=== PATIENT | female | born 1965 | race Caucasian/White ===

== ENCOUNTER 2025-11-07 10:31 | Outpatient (AMB) | payer BC, SELFPAY ==
--- NOTE | 2025-11-07 10:35 | A.PHYSOV_ITS ---
Vital Signs 11/07/25 10:36 Height 5 ft 7 in Weight 195 lb BMI 30.5 Intake Visit Reasons: 3M FUV Intake Note: Patient is a 60 year old female in for her 3 month medication management visit. Engine Mechanic Required: No Allergies No Known Allergies Allergy (Verified 11/07/25 10:35) HPI Comments Details: History of Present Illness The patient is a 60 year old female presenting for a follow-up visit for chronic neck and lower back pain. She has a history of cervical radiculitis and fibromyalgia, for which she is treated with Suboxone daily. Lumbar sacral spine x-rays from March 07, 2025, demonstrated diffuse degenerative changes with multilevel neuroforaminal narrowing, left lateral recess stenosis at the L3-L4 level, and severe left foraminal stenosis at the L5-S1 level. She subsequently underwent left L3 and L5 transforaminal injections on May 01, 2025, which provided at least an 80% reduction in painful symptomatology. At present, her left leg pain is significantly improved, described as very faint and livable. However, she continues to have difficulty standing for long periods, and her lower back cracks and pops. She reports that the Suboxone continues to be helpful. Pain Description - Location: Chronic neck and lower back pain. - Quality: The lower back is described as having cracking and popping sensations. - Radiation: She had prior left leg pain, which is now feeling better and described as very faint. - Exacerbating factors: Standing for a long period. - Relieving factors: Prior left L3 and L5 transforaminal injections provided an 80% reduction in painful symptoms. Results - Imaging: - Lumbar sacral spine MRI (03/07/2025): Revealed diffuse degenerative changes, multilevel neuroforaminal narrowing, left lateral recess stenosis at L3-L4, and severe left foraminal stenosis at L5-S1. [facility] Medical History (Updated 11/07/25 @ 12:03 by Rafat Brunner DO) Spinal stenosis, lumbar region with neurogenic claudication Lumbar radiculitis Chronic pain syndrome Fibromyalgia Surgical History History of cholecystectomy Social History Alcohol intake: current Alcohol intake frequency: does not drink Patient Tobacco Use Status: Former Tobacco user Substance Use Type: Marijuana Current occupational status: retired Review of Systems Narrative Review of Systems - General: Reports generalized body aches and fatigue, particularly in winter. - Musculoskeletal: Reports chronic neck pain and lower back pain with cracking and popping sensations. - Neurological: Reports history of left leg radicular pain, which is now significantly improved and described as very faint. - Respiratory: Reports a history of sleep apnea. Physical Exam Exam Exam: Physical Exam Patient appears to be in no acute distress. Appropriately conversant oriented. She ambulates without antalgia. She was able to perform heel walk and toe walk with support for balance. Cervical range of motion was normal. Lumbar range of motion was restricted in extension. Spurling maneuver was negative today. Lhermitte's sign was negative. She demonstrated no upper motor neuron signs. Neurological examination of upper and lower extremities was nonfocal. Vital Signs: BMI result Body Mass Index 30.5 Assessment & Plan Assessment & Plan (1) Fibromyalgia: Code(s): M79.7 - Fibromyalgia Category: Medical (2) Chronic pain syndrome: Code(s): G89.4 - Chronic pain syndrome Category: Medical (3) Lumbar radiculitis: Code(s): M54.16 - Radiculopathy, lumbar region Category: Medical (4) Spinal stenosis, lumbar region with neurogenic claudication: Code(s): M48.062 - Spinal stenosis, lumbar region with neurogenic claudication Category: Medical Plan Pain Management - Analgesia: The patient takes Suboxone daily for fibromyalgia which she reports is helping. - She received at least an 80% reduction in painful symptoms after left L3 and L5 transforaminal injections. - Her current pain is described as livable, with the prior left leg pain being very faint. - Activities of Daily Living: She has difficulty standing for long periods due to lower back pain. - Affect: She reports body aches and wanting to sleep all the time in the winter. - Adverse Effects: No adverse effects from medications were reported. - Aberrant Drug Related Behaviors: No aberrant behaviors were noted. Plan Patient was informed and verbally consented to the use of an ambient scribe for clinic note documentation during this visit. 1. Chronic Lower Back Pain With Radiculopathy The patient reports significant improvement in her left-sided radicular symptoms following left L3 and L5 transforaminal epidural steroid injections on 05/01/2025, with at least 80% relief. She continues to experience some mechanical low back pain with prolonged standing. Will continue current management and and will see her back in three months for follow up. 2. Fibromyalgia The patient continues to take Suboxone daily with good effect. A refill for Suboxone will be sent for the 11/21/2025 for a 28-day supply. Discussion Notes I reviewed the patient's progress since her last visit. We discussed that her left leg pain has significantly improved to being very faint after her transforaminal injections in April, which provided her with about 80% relief. We also discussed her ongoing use of Suboxone for fibromyalgia, which she finds effective. I will provide a refill for her Suboxone for a 28-day supply to be filled on the November 21. I advised a follow-up visit in three months to continue monitoring her chronic pain. Patient Instructions - Continue taking your Suboxone every day as it appears to be helping your fibromyalgia pain. - A new 28-day prescription for your Suboxone will be sent to your pharmacy. Please pick it up on the . - Please schedule a follow-up appointment to be seen in the office in three months. Medications: Changed From buprenorphine-naloxone 4-1 mg 1 film sublingual DAILY 30 days 28 ea 0RF pain M79.7 - Fibromyalgia To buprenorphine-naloxone 4-1 mg 1 film sublingual DAILY 28 ea 0RF pain 28 days M79.7 - Fibromyalgia Refilled buprenorphine-naloxone 4-1 mg 1 film sublingual DAILY 30 days 28 ea 0RF pain M79.7 - Fibromyalgia Coding Level of Care Code Est Pt Level 3 (75623) Add On Problem Visit Only Diagnoses Fibromyalgia M79.7 Chronic pain syndrome G89.4 Lumbar radiculitis M54.16 Spinal stenosis, lumbar region with neurogenic claudication M48.062
[2025-11-07 10:36] VITALS: BMI 30.5
--- OUTSIDE RECORDS SUMMARY | 2025-11-07 13:07 | XMS_ITS | Clinical Summary ---
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 MEDICATION MAY CAUSE DROWSINESS, DO NOT DRIVE/OPERATE MACHINERY WHILE TAKING 4 Active magnesium oxide (MagOx) 400 mg (241.3 elemental magnesium) tablet Take 1 tablet (400 mg total) by mouth 1 (one) time each day. 4 Active riboflavin (VITAMIN B2) 400 mg tablet Take 1 tablet (400 mg total) by mouth 1 (one) time each day. 4 Active solifenacin (VESICARE) 5 mg tablet Take 1 tablet (5 mg total) by mouth 1 (one) time each day. 4 Active docusate sodium (COLACE) 100 mg capsule Take 1 capsule (100 mg total) by mouth 2 (two) times a day. Active SACCHAROMYCES BOULARDII ORAL Saccharomyces boulardii (Probiotic) 250 MG Cap Active B complex tablet Take by mouth 1 (one) time each day. Active SUMAtriptan (IMITREX) 100 mg tablet Take by mouth. May repeat dose once after 2 hours, if needed. 1 Active sucralfate (CARAFATE) 1 gram tablet Take 1 Tablet by mouth 4 times daily as needed. Prn 8 Active diazePAM (VALIUM) 10 mg tablet Take 10 mg by mouth at bedtime. Prn Active pantoprazole (PROTONIX) 40 mg EC tablet Take 1 tablet (40 mg total) by mouth 1 (one) time each day. 8 Active cetirizine (ZyrTEC) 10 mg tablet Take 1 tablet (10 mg total) by mouth 1 (one) time each day. 9 Active cholecalcifero l, vitamin D3, 100 mcg (4,000 unit) tablet Take by mouth. Ac tive DULoxetine (CYMBALTA) [address] capsuleIndicat ions:Fibromyal rey TAKE 1 CAPSULE BY MOUTH EVERY DAY 90 capsule 1 5 Active lactobacillus acidoph-l.bulg ar 100 million cell granules in packet Take 1 packet by mouth. Active solifenacin (VESICARE) 5 mg tablet Take 1 tablet (5 mg total) by mouth 1 (one) time each day. Swallow tablet whole; do not crush, chew, or split. 90 tablet 3 5 Active buPROPion XL (WELLBUTRIN XL) 150 mg 24 hr tablet TAKE 1 TABLET BY MOUTH IN THE MORNING 90 tablet 1 5 Active lisinopriL (PRINIVIL,ZEST RIL) 10 mg tablet TAKE 1 TABLET BY MOUTH DAILY 90 tablet 1 5 Active Active Problems Problem Noted Date Diagnosed Date Vasomotor symptoms due to menopause 11/12/2023 Overview (11/13/2024): Last Assessment & Plan: Counseled the patient re: options for treatment of vasomotor sx. Explained there are herbal supplements which have not been shown to be effective over placebo and are not FDA monitored for dose and side effect, but can be helpful for some women. Also discussed option for Paxil, Effexor and Clonidine and reviewed their expected SE. I discussed hormone therapy and reviewed the findings of the [facility]. I discussed risks including cardiovascular disease- GA, DVT, stroke. I discussed small increased risk of breast cancer in women with uterus who use progestin for endometrial protection. I explained risk of DVT can be decreased by taking estradiol transdermally. I explained that risk of heart disease in I was highest in women who were 10 years or more out from menopause. She was counseled that I would generally recommend trying a non-hormonal method without cardiovascular risks first. I recommended we check with her PCP to see if we could add something like Paxil to her Cymbalta. I messaged Dr. Clemente and will call patient once I hear back. She voiced understanding of my counseling and agreed. She will call me if she has not heard back in two weeks. Mixed hyperlipidemia 08/02/2023 Gastroesophageal reflux disease without esophagi tis 02/26/2023 Fibromyalgia 08/28/2022 Closed displaced fracture of fifth metatarsal bone of left foot 04/24/2021 Epicondylitis elbow, medial, left 04/24/2021 Lateral epicondylitis of left elbow 04/24/2021 Snoring 10/30/2018 Overview (11/13/2024): 10/2018 Polysomnogram did not reveal sleep apnea. 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 Dave Immunizations Immunization Administration Dates Next Due Influenza Quadravalent, MDCK , 0.5ml, preservative free (Flucelvax) 6mo and older 08/02/2023,08/28/2022,11/05/2020 Influenza Quadravalent, MDCK , 0.5ml, with preservative (Flucelvax) 6mo and older 08/11/2018,07/30/2017 Influenza trivalent, 0.5mL, preservative free (Fluarix; FluLaval; Fluzone) ages 6mo and older (Afluria) 3 years and older 08/09/2024,10/30/2014,08/21/2013,12/22 Pfizer SARS-CoV-2 COVID-19, mRNA, LNP-S, preservative free 04/01/2021,03/02/2021 Pneumococcal polysaccharide 23 valent (Pneumovax 23) 2yo and older 01/11/2014 Tdap Tetanus diptheria acell ular pertussis (Boostrix; Adacel) 7yo and older 08/28/2022,10/16/2009 Surgical History Surgery Date Site/Laterality Comments CHOLECYSTECTOMY PROCEDURE: HISTORICAL CHOLECYSTECTOMY OTHER SURGICAL HISTORY 03/05/2022 PROCEDURE: OUTSIDE ENDOSCOPY; COMMENT: nml bx pending [place] BREAST REDUCTION 11/22/1996 - 11/21/1997 Bilateral breast reduction surgery BLADDER SURGERY 11/22/2023 - 11/21/2024 BLADDER SLING Medical History Medical History Date Comments Unspecified asthma(493.90) 04/28/2006 DX:Un specified asthma(493.90) Headache(784.0) DX:Headache(784. 0) Pansinusitis DX:Pansinusitis; COMMENT: dr bee ent Tubular adenoma 2016 DX:Tubular adeno ma History of endoscopy 09/02/2017 DX:History of endoscopy Migraine DX:Migraine; COM MENT: dr gibbons Anxiety and depression DX:Anxiet y and depression; COMMENT: rmg Abnormal mammogram 02/2018 DX:Abnormal m ammogram; COMMENT: Needs additional imaging Family History Medical History Relation Name Comments Autoimmune disease Neg Hx Breast cancer Neg Hx Colon cancer Neg Hx Coronary artery disease Neg Hx Diabetes Neg Hx Heart attack Neg Hx Heart failure Neg Hx Hyperlipidemia Neg Hx Hypertension Neg Hx Mental illness Neg Hx Ovarian cancer Neg Hx Prostate cancer Neg Hx Sleep apnea Neg Hx Thyroid disease Neg Hx Uterine cancer Neg Hx Relation Name Status Comments Brother Alive Father (Age 71) complicati ons from agent orange Mother Alive hyperparathyroi d Sister Alive Social History Tobacco Use Types Packs/Day Years Used Date Smoking Tobacco: Former Cigarettes 0 Q uit: 1999 Smokeless Tobacco: Never Tobacco Cessation:Counseling Given: Not Answered Alcohol Use Standard Drinks/Week Comments No 0 (1 standard drink = 0.6 oz pur e alcohol) Housing Instability Answer Date Recorde d Are you worried that in the next 2 months you may not have stable housing? No 05/15/2025 Food Access & Nutrition Answer Date Rec orded Do you have access to a vari ety of food including fruits and vegetables? Yes 05/15/2025 Health Literacy Answer Date Recorded How often do you need to hav e someone help you when you read instructions, pamphlets, or other written material from your doctor or pharmacy? Never 05/15/2025 Caregiver: How often do you need to have someone help you when you read instructions, pamphlets, or other written material from your doctor or pharmacy? Not on file 05/15/2025 Financial Risk Answer Date Recorded How hard is it for you to pa y for the very basics like food, housing, medical care, and air conditioning / heating? Not very hard 05/15/2025 Transportation Answer Date Recorded Has the lack of transportati on kept you from meetings, work, or from getting things needed for daily living? No Has the lack of transportati on kept you from medical appointments or from getting medications? No 05/15/2025 Social Isolation Answer Date Recorded How often do you feel lonely or isolated from those around you? Patient declined 05/15/2025 Food Risk Answer Date Recorded Within the past 12 months we worried whether our food would run out before we got money to buy more. Never true 05/15/2025 Within the past 12 months th e food we bought just didn't last and we didn't have money to get more. Never true 05/15/2025 Dependent Care Answer Date Recorded Do you need help finding or paying for care for your loved ones. For example, child care associate teacher or elderly care for an older adult? Patient declined 05/15/2025 Education Answer Date Recorded Do you think completing more education or training, like finishing a GED, going to college, or learning a trade, would be helpful for you? N/A 05/15/2025 Employment and Income Answer Date Recor ded During the last four weeks, have you been actively looking for work? Patient declined 05/15/2025 Living Situation Answer Date Recorded What is your living situation? Unrecognized valu e 05/15/2025 Interpersonal Safety Answer Date Record ed Physical Abuse Unrecognized value 05/01/2025 Verbal Abuse Unrecognized value 05/01/2025 Comments No Sex and Gender Information Value Date Recorded Sex Assigned at Not on file Legal Sex Female 7:24 PM EST Gender Identity Not on file Sexual Orientation Not on file Obstetrics History Para Term AB IAB SAB Ectopic Multiple Livin g Live Births 2 2 2 2 Date Outcome GA Total Labor Labor/2nd/3rd Weight Sex Type Anes PTL Melanie A1 A5 Name Clin Term Term Last Filed Vital Signs Vital Sign Reading Time Taken Comments Blood Pressure 139/96 05/23/2025 10:31 AM EDT Pulse 80 05/23/2025 10:31 AM EDT Temperature 36.1 C (96.9 F) 05/15/2025 3:52 PM EDT Respiratory Rate 20 05/15/2025 3:52 PM EDT Oxygen Saturation 97% 05/01/2025 9:27 AM EDT Inhaled Oxygen Concentration - - Weight 88.5 kg (195 lb) 05/23/2025 10:31 AM EDT Height 170.2 cm (5' 7 ) 05/23/2025 10:31 AM EDT Body Mass Index 30.54 05/23/2025 10:31 AM EDT Plan of Treatment Upcoming Encounters Date Type Department Care Team (Late st Contact Info) Description 11/19/2025 2:45 PM EST Office Visit Adult [address] [phone] Yahir Clemente MD [address] [place] [address] 05/20/2026 4:00 PM EDT Office Visit [address] [phone] Yahir Clemente MD [address] [place], [place] 05/27/2026 11:30 AM EDT Office Visit Urogynecology - [place] [address] [place], [place] [phone] Jayshree Mike MD [address] [facility] [address] [place] [address] Health Maintenance Due Date Last Done Comments Drug Screen 1965 Non-Opioid Controlled Substance Agreement 1965 Zoster Vaccines (1 of 2) 2014 Pneumococcal Vaccine: 50+ Years (2 of 2 - PCV) 01/11/2015 01/11/2014 HIV Screening 10/31/2022 COVID-19 Vaccine (4 - season) 2025 02/18/2023, 04/01/2021, 03/02/2021 Influenza Vaccine (#1) 2025 , 08/02/2023, 08/28/2022, Additional history exists Social Influencers of Health Screening 05/15/2026 05/15/2025 Hypertension/CHF/CAD Annual BMP Blood Test 05/17/2026 05/17/2025, 08/06/2023 Breast Cancer Screening 11/17/2026 11/17/20, 11/10/2023, 11/09/2022, Additional history exists Colorectal Cancer Screening: Colonoscopy 03/05/2027 03/05/2022 Cervical Cancer Screening: HPV 11/19/2028 11/19/2023 Cholesterol Screening (Lipid Panel) 05/17/2030 05/17/2025, 08/06/2023 DTaP,Tdap,and Td Vaccines (3 - Td or Tdap) 08/28/2032 08/28/2022, 10/16/2009 RSV Immunization Adult Patients (1 - 1-dose 75+ series) 2039 Hepatitis C Screening Completed 01/28/2015 Depression Screening Completed 05/15/2025 HIB Vaccines Aged Out No longer eligi ble based on patient's age to complete this topic HPV Vaccines Aged Out No longer eligi ble based on patient's age to complete this topic Hepatitis A Vaccines Aged Out No long er eligible based on patient's age to complete this topic Hepatitis B Vaccines Aged Out No long er eligible based on patient's age to complete this topic IPV Vaccines Aged Out No longer eligi ble based on patient's age to complete this topic MMR Vaccines Aged Out No longer eligi ble based on patient's age to complete this topic Meningococcal ACWY Vaccine Aged Out N o longer eligible based on patient's age to complete this topic Meningococcal B Vaccine Aged Out No l onger eligible based on patient's age to complete this topic RSV Immunization Patients Under 20 months Aged Out No longer eligible based on patient's age to complete this topic Varicella Vaccines Aged Out No longer eligible based on patient's age to complete this topic Procedures Procedure Name Priority Date/Time Associated Diagnosis Comments COMPREHENSIVE METABOLIC PANEL Routine 05/17/2025 9:31 AM EDT Adult general medical examination Primary hypertension Mixed hyperlipidemia LIPID PANEL WITH REFLEX TO DIRECT LDL Routine 05/17/2025 9:31 AM EDT Adult general medical examination Primary hypertension Mixed hyperlipidemia MAMMO DIGITAL SCREENING W WILLIE BILAT Routine 11/17/2024 4:11 PM EST Encounter for screening mammogram for breast cancer HPV Routine 11/19/2023 COLONOSCOPY Routine 03/05/2022 HEPATITIS C SCREENING Routine 01/28/2015 from Last 3 Months or Most Recently Relevant to Health Maintenance Results * Lipid panel with reflex to direct LDL (05/17/2025 9:31 AM EDT) Cholesterol 177 0 - 200 mg/dL LAB CHEMISTRY METHOD 05/17/2025 1:53 PM EDT [facility] Triglycerides 146 0 - 150 mg/dL LAB CHEMISTRY METHOD 05/17/2025 1:53 PM EDT [facility] HDL 55 >=40 mg/dL LAB CHEMISTRY METHOD 05/17/2025 1:53 PM EDT [facility] LDL Calculated 93 0 - 100 mg/dL LAB CHEMISTRY METHOD 05/17/2025 1:53 PM EDT [facility] VLDL Cholesterol Cisco 29.2 mg/dL LAB CHEMISTRY METHOD 05/17/2025 1:53 PM EDT [facility] Non HDL Chol. (LDL+VLDL) 122 <145 mg/dL LAB CHEMISTRY METHOD 05/17/2025 1:53 PM EDT [facility] Chol/HDL Ratio 3.2 0.0 - 4.4 LAB CHEMISTRY METHOD 05/17/2025 1:53 PM EDT [facility] Blood Venous blood specimen / Unknown Venipuncture / Unknown 05/17/2025 9:31 AM EDT 05/17/2025 9:31 AM EDT Nathalia LOPEZ LAB BLOOD ORDERABLES Fin al Result [facility] [address] [place] [address], [place] [phone] * Comprehensive metabolic panel (05/17/2025 9:31 AM EDT) Sodium 137 133 - 145 mmol/L LAB CHEMISTRY METHOD 05/17/2025 1:53 PM [facility] Potassium 4.5 3.5 - 5.5 mmol/L LAB CHEMISTRY METHOD 05/17/2025 1:53 PM T [facility] Chloride 103 96 - 110 mmol/L LAB CHEMISTRY METHOD 05/17/2025 1:53 PM [facility] CO2 30 21 - 32 mmol/L LAB CHEMISTRY METHOD 05/17/2025 1:53 PM T [facility] Anion Gap 4 3 - 11 LAB CHEMISTRY METHOD 05/17/2025 1:53 PM T [facility] Glucose 88 70 - 100 mg/dL LAB CHEMISTRY METHOD 05/17/2025 1:53 PM [facility] BUN 25 5 - 25 mg/dL LAB CHEMISTRY METHOD 05/17/2025 1:53 PM [facility] Creatinine 0.91 0.50 - 1.10 mg/dL LAB CHEMISTRY METHOD 05/17/2025 1:53 PM [facility] eGFR 72 >=60 mL/min/1. 73m2 LAB CHEMISTRY METHOD 05/17/2025 1:53 PM [facility] Comment:Calculation based on the Chronic Kidney Disease Epidemiology Collaboration (CKD-EPI) equation refit without adjustment for race. BUN/Creatinine Ratio 27.5 LAB CHEMISTRY METHOD 05/17/2025 1:53 PM [facility] Calcium 9.1 8.5 - 10.5 mg/dL LAB CHEMISTRY METHOD 05/17/2025 1:53 PM [facility] AST (SGOT) 13 10 - 42 unit/L LAB CHEMISTRY METHOD 05/17/2025 1:53 PM [facility] ALT (SGPT) 22 10 - 60 unit/L LAB CHEMISTRY METHOD 05/17/2025 1:53 PM [facility] Alkaline Phosphatase 72 42 - 121 unit/L LAB CHEMISTRY METHOD 05/17/2025 1:53 PM [facility] Total Protein 6.8 6.0 - 8.0 g/dL LAB CHEMISTRY METHOD 05/17/2025 1:53 PM [facility] Albumin 3.8 3.2 - 5.0 g/dL LAB CHEMISTRY METHOD 05/17/2025 1:53 PM [facility] Total Bilirubin 0.3 0.0 - 1.4 mg/dL LAB CHEMISTRY METHOD 05/17/2025 1:53 PM [facility] Blood Venous blood specimen / Unknown Venipuncture / Unknown 05/17/2025 9:31 AM EDT 05/17/2025 9:31 AM EDT us Nathalia LOPEZ LAB BLOOD ORDERABLES Fin al Result [facility] [address] [place] [address], [place] [phone] * MG Mammo Digital Screening w Willie bilat (11/17/2024 4:11 PM EST) Anatomical Region Laterality Modality Breast Bilateral Mammography 11/20/2024 6:49 PM EST Impressions 11/20/2024 6:51 PM EST No mammographic evidence of malignancy. BREAST DENSITY: B - There are scattered areas of fibroglandular density. BI-RADS CATEGORY: 1 - NEGATIVE RECOMMENDATION: Screening bilateral mammogram is recommended in 1 year. MAMMO LOCATION: [facility], [address] [place] [address], [id number], . -------- FINAL REPORT -------- Dictated By: Mirta Javier Dictated Date: 11/20/2024 18:49 ET Assigned Physician: Mirta Javier Reviewed and Electronically Signed By: Mirat Javier Signed Date: 11/20/2024 18:51 ET Workstation ID: [id number] Transcribed By: Self Edit Transcribed Date: 11/20/2024 18:49 ET Narrative 11/20/2024 6:51 PM EST EXAM: Screening Mammogram CLINICAL: 59 years old, Female, routine annual exam. History of bilateral reduction mammoplasty. COMPARISON: 11/10/2023 and as far back as 11/05/2020 TECHNIQUE: Bilateral MLO and CC views were obtained digitally with 3-D mammogram (digital breast tomosynthesis). Computer-aided detection was utilized in evaluation of this exam (CAD). FINDINGS: No new suspicious mass, architectural distortion, or suspicious calcifications. Procedure Note Mirta Javier MD - 11/20/2024 EXAM: Screening Mammogram CLINICAL: 59 years old, Female, routine annual exam. History of bilateralreduction mammoplasty. COMPARISON: 11/10/2023 and as far back as 11/05/2020 TECHNIQUE: Bilateral MLO and CC views were obtained digitally with 3-Dmammogram (digital breast tomosynthesis). Computer-aided detection wasutilized in evaluation of this exam (CAD). FINDINGS: No new suspicious mass, architectural distortion, or suspiciouscalcifications. IMPRESSION: No mammographic evidence of malignancy. BREAST DENSITY: B - There are scattered areas of fibroglandular density. BI-RADS CATEGORY: 1 - NEGATIVE RECOMMENDATION: Screening bilateral mammogram is recommended in 1 year. MAMMO LOCATION: [facility], [address] [place] [address], [id number], . -------- FINAL REPORT -------- Dictated By: Mirta Javier Dictated Date: 11/20/2024 18:49 ET Assigned Physician: Mirta Javier Reviewed and Electronically Signed By: Mirta Javier Signed Date: 11/20/2024 18:51 ET Workstation ID: [id number] Transcribed By: Self Edit Transcribed Date: 11/20/2024 18:49 ET Gloria Ramos CNRasta IMG BI PROCEDURES Final Result * Cervical Cancer Screening: HPV (11/19/2023) Pathologist [facility] Cervical Cancer Screening: HPV Negative, Abstracted Historical Provider HEALTH MAINTENANCE Final Result * Colonoscopy (03/05/2022) [facility] Colonoscopy No Interpretation , Abstracted Anatomical Region Laterality Modality Other Historical Provider HEALTH MAINTENANCE Final Result * Hepatitis C Screening (01/28/2015) Pathologist [facility] Hepatitis C Screening Abstracted Historical Provider HEALTH MAINTENANCE Final Result from Last 3 Months or Most Recently Relevant to Health Maintenance Insurance MEDICARE [facility]) Care Teams Meat Process Worker Relationship Specialty Start Date End Date Yahir Clemente MD [address] [place] [address] PCP - General Internal Medicine 06/05/22
== END 2025-11-07 10:57 | disposition home or self-care (01) ==
LOC: HO.HPHYS 10:31
PROVIDERS: PCP Internal Medicine; Visit Provider Physical Medicine & Rehabilitation
DX: M79.7 Fibromyalgia (principal); G89.4 Chronic pain syndrome; M54.16 Radiculopathy, lumbar region; M48.062 Spinal stenosis, lumbar region with neurogenic claudication
CPT/HCPCS: 99213